=== PATIENT | male | born 1995 | race Two or more races ===

== ENCOUNTER 2021-04-27 09:30 | Outpatient (CLI) | payer OTHER | END 2021-04-27 10:30 | disposition home or self-care (01) | LOC: PPH VACUNA 09:30 | PROVIDERS: ATTEND Emergency Medicine Pediatric Emergency Medicine | DX: Z23 Encounter for immunization (principal) ==

== ENCOUNTER 2022-10-20 18:47 | Emergency (ER) | payer OTHER ==
[~2022-10-20] VITALS: Ht 170.2 cm; Wt 72.6 kg
[2022-10-20] MEDS ORDERED: ONDANSETRON ODT8 MG PO (20:38)
[2022-10-20] MEDS ORDERED: PEPCID AC20 MG PO (20:38)
[2022-10-20] MEDS ORDERED: CIPRO500 MG PO (20:38)
== END 2022-10-20 20:49 | disposition home or self-care (01) ==
LOC: ER 18:47
DX: K52.9 Noninfective gastroenteritis and colitis, unspecified (principal); Z20.822 Contact with and (suspected) exposure to COVID-19

== ENCOUNTER 2023-03-30 15:27 | Outpatient (CLI) | payer OTHER ==
[~2023-03-30 15:27] MED LIST: CIPRO500 MG PO; ONDANSETRON ODT8 MG PO; PEPCID AC20 MG PO
== END 2023-03-30 15:29 | disposition home or self-care (01) ==
LOC: LAB 15:27
DX: R53.81 Other malaise (principal)

== ENCOUNTER 2024-02-20 12:00 | Outpatient (CLI) | payer OTHER ==
[2024-02-20 12:46] LABS: HEMATOCRIT 43.2 % (39.0-48.0); HEMOGLOBIN 14.5 g/dL (13-16.00); MEAN CELL VOLUME 84.7 fL (80.0-100.00); MEAN CORPUSCULAR HEMOGLOBIN 28.5 pg (27.00-32.0); MEAN CORPUSCULAR HGB CONC 33.6 g/dl (32.0-36.0); PLATELET COUNT 266 K/uL (150-450); RED CELL DISTRIBUTION WIDTH 14.2 % (11.5-14.5)
[2024-02-20 13:42] LABS: MYCOPLASMA PNEUMONIAE IGM NON REACTIVE (NO REACTIVE)
== END 2024-02-20 12:04 | disposition home or self-care (01) ==
LOC: LAB 12:00
PROVIDERS: ATTEND General Practice
DX: J11.1 Influenza due to unidentified influenza virus with other respiratory manifestations (principal); U07.1 COVID-19

== ENCOUNTER 2024-05-28 04:00 | Outpatient (CLI) | payer OTHER | END 2024-05-28 04:15 | disposition home or self-care (01) | LOC: PPH VACUNA 04:00 | PROVIDERS: ATTEND Emergency Medicine Pediatric Emergency Medicine | DX: Z23 Encounter for immunization (principal) ==

== ENCOUNTER 2025-01-08 15:04 | Outpatient (CLI) | payer OTHER | END 2025-01-08 15:09 | disposition home or self-care (01) | LOC: LAB 15:04 | DX: Z11.59 Encounter for screening for other viral diseases (principal); K75.9 Inflammatory liver disease, unspecified ==